=== PATIENT | female | born 1965 | race Caucasian/White ===

== ENCOUNTER → 2016-09-24 10:23 | Outpatient (CLI) | payer BC ==
[2014-11-23 13:29] VITALS: BMI 28.5
[~2016-09-24 10:23] MED LIST: ASPIRIN 81 MG E81 MG PO; BABY ASPIRIN81 MG PO; CITRACAL + D E1 EACH PO; EFFIENT10 MG PO; ELIQUIS2.5 MG PO; FLEXERIL10 MG PO; FLOVENT DISKU100 MCG INH; FOLIC ACID1 MG PO; GABAPENTIN100 MG PO; IMURAN50 MG PO; LEVAQUIN750 MG PO; MAXALT10 MG PO; NITROSTAT0.4 MG SL; NORCO 5/325 TAB1 TA1 PO; PERCOCET 10/3251 TA1 PO; PLAVIX75 MG PO; PRAVACHOL80 MG PO; VENTOLIN HFA18 GM INH; VITAMIN B-1000 MCG/M SQ; VITAMIN D2000 UNIT PO; VITAMIN D31000 UNI2 PO; VITAMIN D31000 UNIT PO; ZANAFLEX4 MG PO; ZESTRIL10 MG PO
== END | disposition home or self-care (01) ==
LOC: D.RAD 10:23 → D.CT 11:30
DX: R10.9 Unspecified abdominal pain (principal)

== ENCOUNTER → 2016-10-11 17:00 | Outpatient (CLI) | payer BC ==
[2014-11-23 13:29] VITALS: BMI 28.5
== END | disposition home or self-care (01) ==
LOC: D.MAMMO 11:00
DX: Z12.31 Encounter for screening mammogram for malignant neoplasm of breast (principal)

== ENCOUNTER → 2017-02-06 07:30 | Outpatient (CLI) | payer BC ==
[2014-11-23 13:29] VITALS: BMI 28.5
== END ==
LOC: D.MRI 07:30
DX: R42 Dizziness and giddiness (principal)

== ENCOUNTER → 2017-07-25 09:59 | Outpatient (CLI) | payer BC ==
[2014-11-23 13:29] VITALS: BMI 28.5
== END | disposition home or self-care (01) ==
LOC: D.US 09:59
DX: R60.0 Localized edema (principal)

== ENCOUNTER → 2017-10-02 07:16 | Outpatient (CLI) | payer BC ==
[2014-11-23 13:29] VITALS: BMI 28.5
[~2017-10-02 07:16] MED LIST changes: +ANORO ELLIPTA1 EACH INH; +ATIVAN0.5 MG PO; +CARAFATE1 G PO; +CRESTOR10 MG PO; +CYMBALTA30 MG PO; +HYDROCODON-ACE1 EAC9 PO; +PROTONIX40 MG PO
== END | disposition home or self-care (01) ==
LOC: D.US 07:16
DX: R94.5 Abnormal results of liver function studies (principal)

== ENCOUNTER → 2017-10-30 12:15 | Outpatient (CLI) | payer BC ==
[2014-11-23 13:29] VITALS: BMI 28.5
== END | disposition home or self-care (01) ==
LOC: D.CT 12:15
DX: R10.9 Unspecified abdominal pain (principal)

== ENCOUNTER 2017-11-14 17:29 | Observation (INO) | payer BC ==
[~2017-11-14] VITALS: Ht 162.6 cm; Wt 75.0 kg
--- NOTE | ~2017-11-14 | HP ---
PATIENT: JOSUE RAMSEY MEDICAL RECORD: [id number] ACCOUNT: [id number] LOCATION:[facility] : 61 ADMISSION DATE: 11/14/17 HISTORY AND PHYSICAL EXAMINATION HISTORY OF PRESENT ILLNESS: A 52-year-old lady with known history of coronary artery disease, status post intervention, has actually done quite well over the past 4 years since the last intervention. She has been having typical chest tightness, pressure with exertion, last probably 2 weeks and had an episode yesterday with doing laundry, woke up again after a nap with chest tightness. She is admitted for further evaluation. PAST MEDICAL HISTORY: 1. History of hypertension. 2. Hyperlipidemia. 3. Gastroesophageal reflux disease. 4. Rheumatoid arthritis, on remittive agents. MEDICATIONS: Include Imuran 50 mg p.o. t.i.d., Carafate 1 gm a.c. and q.h.s., Protonix 40 q. day, Maxalt 10 mg p.r.n., Ativan 0.5 b.i.d. p.r.n., hydrocodone 10/300 q.6 p.r.n., Neurontin 300 q.h.s., Cymbalta 90 q. day, and lisinopril 10 b.i.d., Effient 10 q. day. ALLERGIES: PLAVIX. SOCIAL HISTORY: She is a nonsmoker. Easily takes care of all ADLs. No set exercise program. REVIEW OF SYSTEMS: The patient reports easy bruising but reports no swollen glands. The patient reports no fever, no night sweats, no significant weight gain, no significant weight loss. No significant exercise tolerance. The patient reports no dry eyes, no irritation, no vision change. Patient reports no difficulty hearing and no ear pain. Patient reports no frequent nose bleeds or nose and sinus problems. Patient reports on arm pain on exertion. No shortness of breath while lying down. No history of heart murmur. Patient reports no cough, no wheezing or coughing up blood. Patient reports no abdominal pain, no vomiting. Normal appetite. No diarrhea and not vomiting blood. No nausea and no constipation. Patient reports no incontinence. No difficulty urinating. No hematuria. No increased frequency. Patient reports no muscle aches. No weakness, no arthralgias, no back pain. No swelling of the extremities. Patient reports no abnormal mole, no jaundice, no rashes. Reports no loss of consciousness. No weakness and no numbness. No seizures, dizziness, or headaches. The patient reports no depression, no sleep disturbance, feeling safe in a relationship and no alcohol abuse. Patient reports on fatigue. Reports no runny nose or sinus pressure. No itching, no hives, and no frequent sneezing. PHYSICAL EXAMINATION: GENERAL: Pleasant female, in no acute distress. VITAL SIGNS: 93/53, pulse 55 and regular. HEENT: Normocephalic, atraumatic. NECK: No bruits are noted. HEART: Regular, II/ systolic ejection murmur. LUNGS: Good air excursion. ABDOMEN: Soft, nontender. HISTORY AND PHYSICAL [id number] JOSUE RAMSEY EXTREMITIES: Pulses are 2+ with no edema. DIAGNOSTIC DATA: ECG shows inferior ST-T changes. IMPRESSION: Acute coronary syndrome. PLAN: Plan for diagnostic angiography, intervention based on above. TRANSINT:[id number] Voice Confirmation ID: [id number] DOCUMENT ID: [id number] FAROOQ NICOLE MD at 1214 CC: [id number] DICTATION DATE: 11/15/17 0847 COMMUNICATION COORDINATOR: 11/15/17 0954 DIS IN 11/15/[address] [address]
--- NOTE | ~2017-11-14 | HEMODYNAMI ---
PATIENT:JOSUE RAMSEY MEDICAL RECORD: [id number] : 61 [facility] [id number] ADMISSION DATE: 11/14/17 Generatedon:11/15/201712:42 Patient name: JOSUE RAMSEY Patient #: [id number] SSN: : 1965 Date of study: 11/15/2017 Page: Of Hemodynamic Procedure Report Patient Data Patient Demographics Procedure consent was obtained First Name: JOSUE Gender: Female Last Name: BRAULIO : 1965 [facility] Initial: J Age: 52 year(s) Patient #: [id number] Race: Unknown Additional ID: [id number] Contact details Address: [place] [address] State: [place] City: [place] Zip code: [address] Admission Admission Data Admission Date: 11/14/2017 Admission Time: 19:28 Room #: D.2114 Lab Results Lab Result Date: 11/15/2017 Lab Result Time: 0:00 Biochemistry Name Units Result Min Max BUN mg/dl 19 --(----)*- 7 18 Creatinine mg/dl 0.9 --(-*--)-- 0.6 1.3 CBC Name Units Result Min Max Hemoglobin g/dl 11 *-(----)-- 13.5 17.5 Procedure Procedure Types Cath Procedure Diagnostic Procedure LHC LHC w/Coronaries Procedure Description Procedure Date Procedure Date: 11/15/2017 Procedure Start Time: 12:33 Procedure End Time: 12:41 Procedure Staff Name Function Kishor Stanton MD Performing Physician Soledad Valencia RT Monitor Joya Mcadams RT Scrub Cristofer Hanson RN Nurse Procedure Data Cath Procedure Fluoroscopy Diagnostic fluoroscopy Total fluoroscopy Time: 0.7 time: 0.7 min min Diagnostic fluoroscopy Total fluoroscopy dose: 206 dose: 206 mGy mGy Contrast Material Contrast Material Type Amount (ml) Isovue 300 40 Entry Location Entry Primary Successful Side Size Upsize Upsize Entry Closure Succes sful Closure Location (Fr) 1 (Fr) 2 (Fr) Remarks Device Remarks Femoral Right 5 Fr Exoseal artery Estimated blood loss: 5 ml Diagnostic catheters Device Type Used For End Catheter Placement MULTIPACK Pigtail 5 Fr Multi-vessel catheter Angiography MULTIPACK JL 4.0 5Fr Left Coronary catheter Angiography MULTIPACK 3DRC 5Fr Right Coronary catheter Angiography Procedure Complications No complications Procedure Medications Medication Administration Route Dosage Oxygen etCO2 Nasal cannula 2 l/min Heparin Flush Bag added to field 2 bags (1000units/500ml NS) 0.9% NaCl I.V. 100 ml/hr Fentanyl I.V. 50 mcg Versed I.V. 1 mg Effient P.O. 10 mg Fentanyl I.V. 50 mcg Versed I.V. 1 mg Hemodynamics Rest HGB: 11 (g/dl) Heart Rate: 72 (bpm) Pressure Samples Time Site Value (mmHg) Purpose Heart Use Rate(bpm) 12:34 LV 158/15,16 Snapshot 66 12:35 AO 110/71(90) Pullback 73 Gradients Valve Time Site Site 2 Mean SEP/DFP Peak To Heart Use 1 (mmHg) (sec/min) Peak Rate (mmHg) (bpm) Aortic 12:35 LV AO 22 24 73 110/71(90) Calculations Valve P-P Mean Valve Index Valve Source Name Gradient Area Flow (cm2) Aortic 22 22 Snapshots Pre Cath Intra NCS Post Cath Vital Signs Time Heart Resp SPO2 etCO2 NIBP (mmHg) Rhythm Pain Sedation Rate (ipm) (%) (mmHg) Status Level (bpm) 12:22:55 77 16 96 0 168/93(125) NSR 0 (11) 10(A) , No pain 12:27:15 68 18 94 45.8 164/85(134) NSR 0 (11) 10(A) , No pain 12:31:35 68 17 93 44.3 165/88(133) NSR 0 (11) 9(A) , No pain 12:35:49 71 16 88 42.8 140/85(120) NSR 0 (11) 9(A) , No pain 12:40:52 76 16 96 49.6 167/95(132) NSR 0 (11) 9(A) , No pain Medications Time Medication Route Dose Verified Delivered Reason Notes E ffectiveness by by 12:23:46 Oxygen etCO2 2 Kishor Cleveland Per Nasal l/min [facility] Chan Hanson RN physician cannula 12:23:54 Heparin Flush added 2 Kishor Cristofer used for Bag to bags [facility] Chan Hanson RN procedure (1000units/500ml field NS) 12:24:03 0.9% NaCl I.V. 100 Kishor Cristofer Per ml/hr [facility] Chan Hanson RN physician 12:30:38 Fentanyl I.V. 50 Kishor Cristofer for sedation mcg [facility] Chan Hanson RN, MD 12:30:44 Versed I.V. 1 mg Kishor Cristofer for sedation [facility] Chan Hanson RN, MD 12:30:58 Effient P.O. 10 mg Kishor Cristofer for [facility] Chan Hanson RN antiplatelet MD therapy 12:34:10 Fentanyl I.V. 50 Kishor Cristofer for sedation [facility] Hanson RN, MD 12:34:14 Versed I.V. 1 mg Kishor Cristofer for sedation [facility] Chan Hanson RN, MD Procedure Log Time Note 12:00:09 Joya TRUONG(R) sent for patient. Start room use. 12:08:45 Diagnostic Cath status Elective 12:09:10 Time tracking: Regular hours (M-F 7:00 - 5:00) 12:09:14 Plan of Care:Hemodynamics will remain stable., Cardiac rhythm will remain stable., Comfort level will be maintained., Respiratory function will remain adequate., Patient/ family verbilizes understanding of procedure., Procedure tolerated without complication., Recovers from procedure without complications.. 12:15:08 Patient received from Med II to [facility] 2 Alert and oriented. Tansferred to table in Supine position. 12:15:10 Warm blankets applied, and laith hugger turned on for patient comfort. 12:15:10 Correct patient and procedure confirmed by team. 12:15:12 Signed procedure consent form obtained from patient. 12:15:13 ECG and BP/O2 sat monitors applied to patient. 12:21:47 Vital chart was started 12:21:48 Baseline sample Acquired. 12:21:51 Rhythm: sinus rhythm 12:21:53 Full Disclosure recording started 12:21:57 H&P Date Dictated: 11/15/2017 Within 30 days and on chart., H&P Addendum completed by physician on day of procedure. (MUST COMPLETE FOR ALL OUTPATIENTS). 12:21:59 Pre-procedure instructions explained to patient. 12:21:59 Pre-op teaching completed and patient verbalized understanding. 12:22:00 Family in waiting room. 12:22:02 Patient NPO since Midnight. 12:22:06 Is the patient allergic to Iodine/contrast media? No. 12:22:07 Was the patient premedicated? No 12:22:08 Is patient on blood thinner?Yes 12:22:11 ACC The patient was administered the following blood thiners within the last 24 hours: ACCEffient 12:22:13 Patient diabetic? No. 12:22:15 Previous problem with sedation/anesthesia? No ? 12:22:18 Snore? Yes 12:22:20 Sleep apnea? No 12:22:21 Deviated septum? No 12::22 Opens mouth fully? Yes 12:22:23 Sticks out tongue? Yes 12:22:27 Airway obstruction? Yes copd 12:22:35 Dentures? Yes uppers in tight 12:22:39 Pre procedure: right dorsailis pedis pulse 1+ Palpable, but thready & weak; easily obliterated 12::42 Pre procedure: left dorsailis pedis pulse 1+ Palpable, but thready & weak; easily obliterated 12:22:44 Patient pain scale 0/10 ?. 12:22:55 IV patent on arrival in left forearm with 0.9% NaCl at [facility]. 12:22:57 Lab results completed and on chart. 12:23:02 Right groin area was prepped with chlora-prep and draped in sterile fashion 12:23:03 Alarms reviewed by R. N. 12:23:04 Sharps counted by scrub and verified by R.N. 12:23:46 Oxygen 2 l/min etCO2 Nasal cannula was administered by Cristofer Hanson RN; Per physician; 12:23:54 Heparin Flush Bag (1000units/500ml NS) 2 bags added to field was administered by Cristofer Hanson RN; used for procedure; 12:24:03 0.9% NaCl 100 ml/hr I.V. was administered by Cristofer Hanson RN; Per physician; 12:26:00 Lab Result : BUN 19 mg/dl 12:26:00 Lab Result : Hemoglobin 11 g/dl 12:26:00 Lab Result : Creatinine 0.9 mg/dl 12:30:17 Physician arrived 12::17 --------ALL STOP TIME OUT------ 12:30:18 Final Timeout: patient, procedure, and site verified with staff and physician. All members of the team are in agreement. 12:30:21 Right groin site verified by team. 12:30:24 Physical assessment completed. ASA score P 2 - A patient with mild systemic disease as per Kishor Stanton MD. 12:30:27 Sedation plan: IV Moderate Sedation Medication:Versed, Fentanyl 12:30:38 Fentanyl 50 mcg I.V. was administered by Cristofer Hanson RN; for sedation; 12:30:44 Versed 1 mg I.V. was administered by Cristofer Hanson RN; for sedation; 12:30:58 Effient 10 mg P.O. was administered by Cristofer Hanson RN; for antiplatelet therapy; 12:31:11 Use device set Femoral Dx 12:31:12 ACIST Syringe (67565) opened to sterile field. 12:31:12 Bag Decanter (2002S) opened to sterile field. 12:31:12 Medline Cath Pack ([id number]) opened to sterile field. 12:31:13 DIAGNOSTIC WIRE .035 260cm J wire (889045) opened to sterile field. 12:31:14 ACIST Hand Control (81117) opened to sterile field. 12:31:15 ACIST Manifold (30492) opened to sterile field. 12:31:15 DIAGNOSTIC Multipack 5Fr catheter set (GL0562) opened to sterile field. 12:31:15 Tegaderm 4 x 4 (1626W) opened to sterile field. 12:31:16 SHEATH Prelude 5Fr 0.035 (RCN-8O-69-035) opened to sterile field. 12:31:58 Procedure started. 12:32:06 Zero performed for pressure channel P1 12:32:17 Zero performed for pressure channel P1 12:32:26 Zero performed for pressure channel P1 12:33:22 Local anesthetic to right femoral artery with Lidocaine 2% by Kishor Stanton MD.INITIAL ACCESS ONLY 12:33:34 A 5 Fr sheath was inserted into the Right Femoral artery 12:34:10 Fentanyl 50 mcg I.V. was administered by Cristofer Hanson RN; for sedation; 12:34:14 Versed 1 mg I.V. was administered by Cristofer Hanson RN; for sedation; 12:34:35 A MULTIPACK Pigtail 5 Fr catheter was advanced over the wire and used for Multi-vessel Angiography. 12:34:44 LV hemodynamics recorded. 12:34:45 LV gram done using CERRATO 12:34:48 Injector settings: Ml/sec: 5, Volume: 15, 12:35:00 EF : 40 % 12:35:04 Catheter removed. 12:35:08 A MULTIPACK JL 4.0 5Fr catheter was advanced over the wire and used for Left Coronary Angiography. 12:36:21 LCA angiography performed. 12:36:24 Injector settings: Ml/sec: 3, Volume: 6, 12:36:51 Catheter removed. 12:37:08 A MULTIPACK 3DRC 5Fr catheter was advanced over the wire and used for Right Coronary Angiography. 12:37:39 RCA angiography performed. 12:37:44 Injector settings: Ml/sec: 3, Volume: 6, 12:37:57 Catheter removed. 12:37:59 EXOSEAL 5Fr (EX500) opened to sterile field. 12:39:22 Sheath removed intact; hemostasis achieved with Exoseal to the Right Femoral artery. 12:39:24 Procedure ended.(Physican Out) 12:40:00 Fluoroscopy time 00.70 minutes. 12:40:04 Fluoroscopy dose: 206 mGy 12:40:04 Flurop Dose total: 206 12:40:09 Contrast amount:Isovue 300 40ml. 12:40:10 Sharps counted by scrub and verified by R.N. 12:40:12 Insertion/operative site no bleeding no hematoma. 12:40:15 Post-op/insertion site Right Femoral artery dressed using a 4 x 4 and Tegaderm. 12:40:17 Post right femoral artery:stable 12:40:19 Post Procedure Pulses reassessed and unchanged 12:40:21 Post procedure rhythm: unchanged. 12:40:24 Estimated blood loss: 5 ml 12:40:25 Post procedure instruction explained to patient.Patient verbalizes understanding. 12:40:26 Patient needs reinforcement of post procedure teaching. 12:40:37 Procedure and supply charges have been captured, reviewed, submitted and are correct. 12:40:41 Procedure Complication : No complications 12:40:43 Vital chart was stopped 12:40:44 See physician's report for complete and final results. 12:41:42 Report given to Pre/Post Procedure Room. 12:41:45 Patient transfered to Pre/Post Procedure Room with Stretcher. 12:41:49 Procedure ended. 12:41:49 Full Disclosure recording stopped 12:41:53 End room use (Document Last) Device Usage Item Name Manufacture Quantity Catalog Number Hospital Part Current M inimal Lot# / Charge Number Stock Stock Serial# Code ACIST Syringe Acist 1 [id number] 444160 499342 031396 2 0 (72135) [employer] Bag Decanter Microtek 1 2001S 411381 46844 440510 5 (2001S) Medical Inc. Medline Cath Cardinal 1 [id number] 420514 40310 034099 5 Pack Health ([id number]) DIAGNOSTIC WIRE St Jacob 1 381426 800250 375473 254484 3 0 .035 260cm J wire (925707) ACIST Hand Acist 1 66839 923009 249038 568306 5 Control (88539) [employer] Inc ACIST Manifold Acist 1 61108 432361 730842 729940 5 (64656) [employer] Inc DIAGNOSTIC Cardinal 1 [id number] 439281 13362 337205 3 0 Multipack 5Fr Health catheter set (OV9025) Tegaderm 4 x 4 3M 1 1626W 591986 691188 095068 5 (1626W) SHEATH Prelude Merit 1 XXL-2C-59-035 885513 251038 599149 5 5Fr 0.035 Medical (EAT-7U-16-035) MULTIPACK Cardinal 1 920411 5 Pigtail 5 Fr Health catheter MULTIPACK JL Cardinal 1 [id number] 5 4.0 5Fr Health catheter MULTIPACK 3DRC Cardinal 1 906939 5 5Fr catheter Health EXOSEAL 5Fr Cardinal 1 EX500 048312 195024 050447 1 0 (EX500) Health Signature Audit [place] Stage Time Signature Unsigned Intra-Procedure 11/15/2017 Soledad Valecnia 12:42:53 PM RT(R) Signatures Monitor : Soledad Valencia RT Signature : Date : Time : [facility] [address] [place] [address]
--- NOTE | ~2017-11-14 | PRO ---
PATIENT:JOSUE RAMSEY MEDICAL RECORD: [id number] : 61 LOCATION:[facility] ADMISSION DATE: 11/14/17 PROCEDURE PERFORMED BY: FAROOQ NICOLE MD DATE OF CONSULTATION: 11/15/2017 PROCEDURE: Left heart catheterization, selective coronary angiography, right femoral artery approach. CATHETERS: A 5-Luxembourgish sheath, 5/4 left and right Handy, 5/4 pig. The procedure was well tolerated and the patient returned to the mckenzie. Sheath was removed. ExoSeal device was placed. FINDINGS: Left ventriculography in 30-degree CERRATO view shows mild global hypokinesis. Overall LV function is mildly reduced. Estimated EF 45% to 50%. CORONARY ANATOMY: 1. Left main: The left main is free of disease. 2. LAD: The area of previous stenting is widely patent. 3. Circumflex: The circumflex is free of disease. 4. Right coronary artery: The previous stenting is widely patent. IMPRESSION: Widely patent stents. LV function in the lower limits of normal to mildly reduced. EDITED FOR REPORT TYPE, 12/05/17, MICHELLE TRANSINT:[id number] Voice Confirmation ID: [id number] DOCUMENT ID: [id number] FAROOQ NICOLE MD at 0834 CC: [id number] DICTATION DATE: 11/15/17 1244 FLORAL ARTIST: 11/15/17 1340 DIS IN 11/15/17 [place] [id number] [place] [id number]
[~2017-11-14 17:29] MED LIST changes: -ANORO ELLIPTA1 EACH INH; -ATIVAN0.5 MG PO; -CARAFATE1 G PO; -CRESTOR10 MG PO; -CYMBALTA30 MG PO; -HYDROCODON-ACE1 EAC9 PO; -PROTONIX40 MG PO
[2017-11-14 18:04] LABS: BASOPHILS 0.2 % (0-2); HEMATOCRIT 34.2 % (36.0-48.0); IMMATURE GRANULOCYTES 0.4 % (0-5); LYMPHOCYTES 20.8 % (15-50); MCH 29.3 pg (26.0-34.0); MCHC 32.2 g/dL (31.0-37.0); MCV 91.2 fL (80.0-100.0); MEAN PLATELET VOLUME 9.1 fL (7.4-10.4); NEUTROPHILS 69.6 % (40-80); RBC 3.75 10x6/uL (4.00-5.40); RDW 12.7 % (11.5-14.5); WBC 5.3 10x3/uL (4.8-10.8)
[2017-11-14 18:05] LABS: PLATELET COUNT 223 10x3/uL (130-400)
[2017-11-14 18:13] LABS: APTT 34.3 SECONDS (22.8-39.4); INR 1.06 (0.85-1.17); PROTIME 13.4 SECONDS (11.6-15.0)
[2017-11-14 18:15] LABS: D-DIMER-QUANTITATIVE 0.81 ug/mLFEU (0.20-0.54)
[2017-11-14 18:18] LABS: ALBUMIN 3.5 g/dL (3.4-5.0); ALKALINE PHOSPHATASE 61 U/L (46-116); ALT (SGPT) 20 U/L (10-68); BILIRUBIN - TOTAL 1.07 mg/dL (0.2-1.3); CALC OSMOLALITY 285 mosm/kg (275-300); CALCIUM 9.6 mg/dL (8.5-10.1); CARBON DIOXIDE 26.2 mmol/L (21.0-32.0); CHLORIDE - SERUM 105 mmol/L (98-107); CREATININE - SERUM 0.9 mg/dL (0.6-1.3); GLUCOSE 157 mg/dL (74-106); SODIUM 141 mmol/L (136-145); UREA NITROGEN 19 mg/dL (7-18); eGFR NON AFRICAN AMERICAN 69 mL/min (90-120)
[2017-11-14 18:29] LABS: CKMB 0.9 U/L (0.0-3.6); CREATINE KINASE 156 UL (21-215); PRO BNP 561 pg/mL (0-125)
[2017-11-14 18:33] LABS: TROPONIN-I < 0.017 ng/mL (0.000-0.060)
[2017-11-14] MEDS ORDERED: ATIVAN0.5 MG PO (22:40)
[2017-11-14] MEDS ORDERED: CRESTOR10 MG PO (22:40)
[2017-11-14] MEDS ORDERED: CARAFATE1 G PO (22:41)
[2017-11-14] MEDS ORDERED: CYMBALTA30 MG PO (22:41)
[2017-11-14] MEDS ORDERED: PROTONIX40 MG PO (22:42)
[2017-11-14] MEDS ORDERED: HYDROCODON-ACE1 EAC9 PO (22:42)
[2017-11-14] MEDS ORDERED: ANORO ELLIPTA1 EACH INH (22:43)
[2017-11-14 23:40] VITALS: BP 128/60; Ht 162.6 cm; Wt 75.0 kg
[2017-11-15 01:24] LABS: CKMB 0.8 U/L (0.0-3.6); CREATINE KINASE 132 UL (21-215); TROPONIN-I < 0.017 ng/mL (0.000-0.060)
[2017-11-15 03:58] LABS: CKMB 0.6 U/L (0.0-3.6); CREATINE KINASE 118 UL (21-215)
[2017-11-15 04:01] LABS: TROPONIN-I < 0.017 ng/mL (0.000-0.060)
[2017-11-15 05:40] VITALS: BP 98/48
[2017-11-15 08:33] VITALS: BP 93/53
[2017-11-15 09:10] LABS: BASOPHILS 0.5 % (0-2); EOSINOPHILS 2.9 % (0-7); HEMATOCRIT 30.9 % (36.0-48.0); HEMOGLOBIN 9.6 g/dL (12-16); IMMATURE GRANULOCYTES 0.5 % (0-5); LYMPHOCYTES 28.6 % (15-50); MCH 28.9 pg (26.0-34.0); MCHC 31.1 g/dL (31.0-37.0); MCV 93.1 fL (80.0-100.0); MEAN PLATELET VOLUME 9.5 fL (7.4-10.4); MONOCYTES 5.6 % (2-11); NEUTROPHILS 61.9 % (40-80); PLATELET COUNT 232 10x3/uL (130-400); RBC 3.32 10x6/uL (4.00-5.40); RDW 12.8 % (11.5-14.5); WBC 4.4 10x3/uL (4.8-10.8)
[2017-11-15 09:12] LABS: CALC OSMOLALITY 291 mosm/kg (275-300); CALCIUM 8.8 mg/dL (8.5-10.1); CARBON DIOXIDE 29.4 mmol/L (21.0-32.0); CHLORIDE - SERUM 109 mmol/L (98-107); CREATININE - SERUM 0.8 mg/dL (0.6-1.3); GLUCOSE 123 mg/dL (74-106); SODIUM 145 mmol/L (136-145); UREA NITROGEN 18 mg/dL (7-18); eGFR NON AFRICAN AMERICAN 79 mL/min (90-120)
[2017-11-15 09:18] LABS: POTASSIUM - SERUM 3.5 mmol/L (3.5-5.1)
[2017-11-15 11:38] LABS: CKMB 0.8 U/L (0.0-3.6); CREATINE KINASE 112 UL (21-215); TROPONIN-I < 0.017 ng/mL (0.000-0.060)
[2017-11-15 11:41] VITALS: BP 123/63
== END 2017-11-15 15:00 | disposition home or self-care (01) ==
LOC: D.ER 17:29 → D.M2 19:28 → OBSVTIME 19:30 → D.CLR 11-15 12:49
PROVIDERS: Emergency Medicine; Family Medicine; Internal Medicine Interventional Cardiology
DX: R07.89 Other chest pain (principal); I25.10 Atherosclerotic heart disease of native coronary artery without angina pectoris; Z95.5 Presence of coronary angioplasty implant and graft; I10 Essential (primary) hypertension; E78.5 Hyperlipidemia, unspecified; K21.9 Gastro-esophageal reflux disease without esophagitis; M06.9 Rheumatoid arthritis, unspecified

== ENCOUNTER 2018-04-08 11:45 | Inpatient (IN) | payer BC ==
[2018-04-03 17:25] LABS: HEMATOCRIT 37.9 % (36.0-48.0); HEMOGLOBIN 12.5 g/dL (12-16); MCH 29.3 pg (26.0-34.0); MEAN PLATELET VOLUME 9.4 fL (7.4-10.4); RBC 4.26 10x6/uL (4.00-5.40); RDW 14.5 % (11.5-14.5); WBC 5.3 10x3/uL (4.8-10.8)
[2018-04-08] VITALS (8 sets, daily range): BP systolic 89–137; BP diastolic 54–87; BMI 27.8
[~2018-04-08] VITALS: Ht 165.1 cm; Wt 74.5 kg
--- NOTE | ~2018-04-08 | OP ---
PATIENT NAME: JOSUE JAMES MEDICAL RECORD: [id number] :61 LOCATION:[facility] ADMISSION DATE:04/08/18 SURGEON: MARCELO NOLEN DO DATE OF OPERATION: 04/08/2018 PROCEDURE PERFORMED: Left total hip arthroplasty. PREOPERATIVE DIAGNOSIS: Avascular necrosis of the left femoral head. POSTOPERATIVE DIAGNOSIS: Avascular necrosis of the left femoral head. SURGEON: Marcelo Nolen DO INDICATIONS: Ms. James is a 53-year-old female who presented to my office last week. She had been seen previously in the office by a prior physician and she had a right total hip done for avascular necrosis approximately 2 years ago. She said that her left hip started hurting her quite a bit in the last few months. The pain may get worse. She is tired of dealing with the pain and knew that she had avascular necrosis. Based on the MRI she had 2 years ago and on x-ray, she had a large what appeared to be a crescent sign cyst on the lateral x-ray of her hip. Knowing this and due to the pain, she did not want to wait for it to collapse or get worse and she asked to have a total hip done. I informed her of the risks and benefits of the procedure including the risk of fracture, bleeding, infection, need for further surgery, also gave her the precautions for anterior hip. She was aware of those risks and consented to the procedure. She is also aware of the leg length discrepancy possibility. DESCRIPTION OF PROCEDURE: The patient was given a block in the preoperative area by anesthesia and taken to the operative suite, laid in the supine position. Given general anesthetic, intubated and sedated, given 1.25 grams of vancomycin intravenously. A timeout was performed. It was agreed as the correct side, site, the patient and procedure. The left hip was then prepped and draped in sterile fashion. Once was prepped and draped and a timeout performed, the incision began just over the tensor fascia sage and based on the ASIS as a landmark diagonally over the tensor fascia sage, a careful dissection was made down to the fascia itself over the tensor fascia sage. This was incised and the muscle belly was taken inferior and then fascia superiorly anterior and posteriorly. The interval between the rectus was then encountered and the rectus was taken medially and the tensor fascia sage was taken laterally and the capsule was encountered as well as the ascending branch of the lateral femoral circumflex, which was tied off and the Aquamantys was used to coagulate it as well and then was cut. There was no bleeding from it. Coagulation was done throughout the procedure with the Aquamantys and the plasma blade. The capsulotomy was then performed. The capsule was tagged at the neck of the femur. Hohmanns were put on either side of it and then the femur cut was made. The head was then removed from the acetabulum. The acetabulum was cleaned. The labrum was removed and the pulvinar was removed from the acetabulum and then reaming began first medializing and then reamed up to a 50. A 50 cup was put into place and seen to be in good position. This was done under fluoroscopy and the cup liner was put in. The femur was then exposed. The neck slightly had a slightly high neck cut and this was recut at that time and then the canal finder was used as well as the kodiie cutter and then began broaching with the 4 up to a 10, 10 fitted OPERATIVE REPORT [id number] JOSUE JAMES. We then trialed neck and head with a -6. This was too short, went to a -3 and this was close but still too short. Then, we put the stem down, the #10 stem with a standard neck trial and this on x-rays, AP pelvis compared to the other hip and it was very close and equal lengths. Once this was obtained, the actual implant was put on and impacted into place. The hip was reduced. Thorough irrigation was done throughout the procedure once the hip was reduced and the capsule was then closed with tag stitch #2 Ethibond and then the tensor fascia sage fascia was closed with #1 Vicryl, first in tqfuwe-lg-zhema and then a running locking stitch. Then, this was irrigated, prior to closure of the tensor fascia sage fascia, vancomycin powder and Surgicel beads were placed into the wound. The tensor fascia sage fascia was irrigated and then closed with 2-0 Vicryl and 4-0 Monocryl and Prineo was placed on the skin. Telfa and tape were then placed on her skin over the incision with a perineal glue. ESTIMATED BLOOD LOSS: Blood loss was approximately 200 mL. COMPLICATIONS: None. TRANSINT:[id number] Voice Confirmation ID: [id number] DOCUMENT ID: [id number] MARCELO NOLEN DO at 0727 CC: [id number] DICTATION DATE: 04/08/181750 SEASONAL SALES ASSOCIATE: 04/08/181948 ADM IN [facility] [address] [id number]
--- NOTE | ~2018-04-08 | EC ---
PATIENT:JOSUE RAMSEY DATE OF SERVICE: 04/08/18 SEX: F MEDICAL RECORD: [id number] DATE OF : 61 LOCATION:[facility] AGE OF PATIENT: 53 ADMISSION DATE: 04/08/18 REFERRING PHYSICIAN: INTERPRETING PHYSICIAN: RADHA OSPINA MD ECHOCARDIOGRAM REPORT ECHO CHARGES 4 ECHO COMPLETE Date: 04/11/18 CLINICAL DIAGNOSIS: CHF HX OF CAD/STENTS/HTN ECHOCARDIOGRAPHIC MEASUREMENTS (adult normal given) AC root (d.<3.7cm) 3.3 cm LV Septum d (<1.2 cm> 1.4 cm Valve Excursion 1.6 cm LV Septum (systole) 2.0 cm Left Atria (s.<4.0cm> 3.7 cm LVPW d(<1.2cm) 1.6 cm RV (d.<2.3cm) 4.2 cm LVPW (sytole) 2.0 cm LV diastole(<5.6CM) 6.5 cm MV E-F(>70mm/sec) cm LV systole 4.4 cm LVOT Diameter 1.7 cm MV exc.(>10mm) 2.0 cm Est.ejection fraction (50-75%) % DOPPLER: LVIT cm/sec A 99.0 cm/sec E 88.0 cm/sec LA cm/sec RVSP 30 mmHg LVOT 146 cm/sec AOP1/2T m/s Asc. Ao 178 cm/sec RVOT 81 cm/sec RA cm/sec PA 127 cm/sec AV Gradient Peak 12.61mmHg AV Mean 7.00 mmHg AV Area 1.6 cm MV Gradient Peak 5.12 mmHg MV Mean 2.52 mmHg MV Area cm COMMENTS: Mortician Investigator: 2 CHANDRAKANT CLAYTON Foxer: 4 Dr. Ospina TAPE# PACS Pericardial Effusion N DATE OF SERVICE: PROCEDURE: Transthoracic echocardiogram. FINDINGS: 1. Left ventricle is difficult to visualize, but the patient's overall ejection fraction appears to be normal. There is evidence of left ventricular hypertrophy and inflow characteristics consistent with diastolic dysfunction. 2. The left atrium appears to be grossly normal. 3. The aortic valve is shown to be thickened, but no evidence of significant ECHOCARDIOGRAM REPORT [id number] JOSUE RAMSEY stenosis or regurgitation. 4. The mitral valve has ppvfh-up-tgge mitral regurgitation. 5. Tricuspid valve has mild tricuspid regurgitation. RVSP is normal. 6. Pericardium is normal. 7. The right ventricle is tspi-uo-kaeqoklvac dilated. The right ventricular free wall appears to be mildly hypokinetic. 8. The right atrium is dilated. CONCLUSIONS: The patient has evidence of mild dilatation in the RV. Preserved left ventricular systolic function. Evidence of hypertensive heart disease. TRANSINT:[id number] Voice Confirmation ID: [id number] DOCUMENT ID: [id number] RADHA OSPINA MD at 1348 CC: [id number] DICTATION DATE: 04/12/18 1030 PRODUCT STEWARD: 04/12/18 1054 DIS IN 04/13/18 [facility] [address] [place] [address]
[~2018-04-08 11:45] MED LIST changes: +ANORO ELLIPTA1 EACH INH; +ATIVAN0.5 MG PO; +BAYER CHEWABLE81 MG PO; +CARAFATE1 G PO; +CRESTOR10 MG PO; +CYMBALTA30 MG PO; +HYDRALAZINE HCL25 MG PO; +HYDROCODON-ACE1 EAC7 PO; +PROTONIX40 MG PO; +THIAMINE IN100 MG/ML IM; +[UNRECOGNIZED DRUG - OTHER]
[2018-04-09 04:25] LABS: HEMATOCRIT 30.2 % (36.0-48.0); HEMOGLOBIN 9.7 g/dL (12-16); MCH 28.7 pg (26.0-34.0); MCHC 32.1 g/dL (31.0-37.0); MCV 89.3 fL (80.0-100.0); MEAN PLATELET VOLUME 9.7 fL (7.4-10.4); RBC 3.38 10x6/uL (4.00-5.40); WBC 7.2 10x3/uL (4.8-10.8)
[2018-04-09 04:51] VITALS: BP 122/78; BMI 27.3
[2018-04-09 05:46] VITALS: BP 103/60
[2018-04-09 06:48] VITALS: Ht 165.1 cm; Wt 74.5 kg
[2018-04-09 07:08] LABS: ALBUMIN 2.8 g/dL (3.4-5.0); ANION GAP 13.5 mmol/L (8-16); BILIRUBIN - TOTAL 1.76 mg/dL (0.2-1.3); CALCIUM 8.3 mg/dL (8.5-10.1); CARBON DIOXIDE 26.4 mmol/L (21.0-32.0); CREATININE - SERUM 1.1 mg/dL (0.6-1.3); POTASSIUM - SERUM 4.9 mmol/L (3.5-5.1); PROTEIN - SERUM 5.9 g/dL (6.4-8.2)
[2018-04-09 08:26] VITALS: BP 113/56
[2018-04-09 13:47] VITALS: BP 123/63
[2018-04-09 16:02] VITALS: BP 137/57
[2018-04-09 22:57] VITALS: BP 121/56
[2018-04-10 04:45] LABS: BASOPHILS 0.2 % (0-2); EOSINOPHILS 0.3 % (0-7); HEMATOCRIT 27.1 % (36.0-48.0); HEMOGLOBIN 8.8 g/dL (12-16); IMMATURE GRANULOCYTES 0.2 % (0-5); LYMPHOCYTES 11.1 % (15-50); MCH 29.5 pg (26.0-34.0); MCHC 32.5 g/dL (31.0-37.0); MCV 90.9 fL (80.0-100.0); MEAN PLATELET VOLUME 9.7 fL (7.4-10.4); MONOCYTES 9.6 % (2-11); NEUTROPHILS 78.6 % (40-80); PLATELET COUNT 220 10x3/uL (130-400); RBC 2.98 10x6/uL (4.00-5.40); RDW 15.7 % (11.5-14.5); WBC 6.7 10x3/uL (4.8-10.8)
[2018-04-10 05:07] LABS: ALBUMIN 2.8 g/dL (3.4-5.0); BILIRUBIN - TOTAL 1.42 mg/dL (0.2-1.3); CALCIUM 8.3 mg/dL (8.5-10.1); CARBON DIOXIDE 30.1 mmol/L (21.0-32.0); MAGNESIUM - SERUM 1.7 mg/dL (1.8-2.4); PHOSPHOROUS 3.4 mg/dL (2.5-4.9); PROTEIN - SERUM 5.9 g/dL (6.4-8.2)
[2018-04-10 05:26] LABS: ANION GAP 9.6 mmol/L (8-16); CREATININE - SERUM 1.6 mg/dL (0.6-1.3); POTASSIUM - SERUM 3.7 mmol/L (3.5-5.1)
[2018-04-10 10:48] VITALS: BP 77/36
[2018-04-10 16:16] LABS: APPEARANCE CLEAR (CLEAR); BILIRUBIN NEGATIVE (NEGATIVE); COLOR YELLOW (YELLOW); GLUCOSE NEGATIVE (NEGATIVE); KETONE NEGATIVE (NEGATIVE); NITRITE NEGATIVE (NEGATIVE); PROTEIN NEGATIVE (NEGATIVE); UROBILINOGEN NORMAL (NORMAL)
[2018-04-10 16:18] LABS: BACTERIA FEW /hpf (NONE SEEN); EPITHELIAL CELLS 0-5 /hpf (0-5); RED CELLS - URINE 0-5 /hpf (0-5); WHITE CELLS - URINE 0-5 /hpf (0-5)
[2018-04-10 20:00] VITALS: BP 137/72
[2018-04-11] VITALS: BP 110/60
[2018-04-11 04:00] VITALS: BP 80/50
[2018-04-11 04:27] LABS: BASOPHILS 0.1 % (0-2); EOSINOPHILS 1.6 % (0-7); HEMATOCRIT 31.9 % (36.0-48.0); HEMOGLOBIN 10.3 g/dL (12-16); IMMATURE GRANULOCYTES 0.3 % (0-5); MCH 28.8 pg (26.0-34.0); MCHC 32.3 g/dL (31.0-37.0); MCV 89.1 fL (80.0-100.0); MEAN PLATELET VOLUME 9.4 fL (7.4-10.4); MONOCYTES 9.9 % (2-11); NEUTROPHILS 75.1 % (40-80); RDW 15.7 % (11.5-14.5); WBC 6.7 10x3/uL (4.8-10.8)
[2018-04-11 04:35] LABS: ALBUMIN 2.5 g/dL (3.4-5.0); ANION GAP 8.3 mmol/L (8-16); BILIRUBIN - TOTAL 2.66 mg/dL (0.2-1.3); CALCIUM 8.5 mg/dL (8.5-10.1); CARBON DIOXIDE 30.7 mmol/L (21.0-32.0); CREATININE - SERUM 1.7 mg/dL (0.6-1.3); MAGNESIUM - SERUM 1.6 mg/dL (1.8-2.4); PHOSPHOROUS 3.3 mg/dL (2.5-4.9); PROTEIN - SERUM 5.8 g/dL (6.4-8.2)
[2018-04-11 04:36] LABS: PLATELET COUNT 162 10x3/uL (130-400); RBC 3.58 10x6/uL (4.00-5.40)
[2018-04-11 08:02] VITALS: BP 72/39
[2018-04-11 10:32] LABS: CKMB 2.4 U/L (0.0-3.6); CREATINE KINASE 752 UL (21-215)
[2018-04-11 10:35] LABS: TROPONIN-I < 0.017 ng/mL (0.000-0.060)
[2018-04-11 15:05] LABS: HEMOGLOBIN 9.9 g/dL (12-16)
[2018-04-11 15:31] LABS: CKMB 5.1 U/L (0.0-3.6)
[2018-04-11 15:40] LABS: CREATINE KINASE 1261 UL (21-215); TROPONIN-I < 0.017 ng/mL (0.000-0.060)
[2018-04-11 20:00] VITALS: BP 143/69
[2018-04-11 22:14] LABS: CKMB 6.4 U/L (0.0-3.6)
[2018-04-11 22:15] LABS: CREATINE KINASE 1815 UL (21-215); TROPONIN-I < 0.017 ng/mL (0.000-0.060)
[2018-04-12] VITALS: BP 125/60
[2018-04-12 04:00] VITALS: BP 87/51
[2018-04-12 05:50] LABS: BASOPHILS 0.2 % (0-2); EOSINOPHILS 3.1 % (0-7); HEMATOCRIT 29.5 % (36.0-48.0); HEMOGLOBIN 9.5 g/dL (12-16); IMMATURE GRANULOCYTES 0.4 % (0-5); LYMPHOCYTES 15.7 % (15-50); MCH 28.3 pg (26.0-34.0); MCHC 32.2 g/dL (31.0-37.0); MCV 87.8 fL (80.0-100.0); MONOCYTES 8.8 % (2-11); NEUTROPHILS 71.8 % (40-80); PLATELET COUNT 179 10x3/uL (130-400); RBC 3.36 10x6/uL (4.00-5.40); RDW 14.9 % (11.5-14.5)
[2018-04-12 05:53] LABS: WBC 4.9 10x3/uL (4.8-10.8)
[2018-04-12 06:16] LABS: CALC OSMOLALITY 279 mosm/kg (275-300); CALCIUM 8.5 mg/dL (8.5-10.1); CARBON DIOXIDE 28.1 mmol/L (21.0-32.0); CHLORIDE - SERUM 105 mmol/L (98-107); CREATININE - SERUM 0.8 mg/dL (0.6-1.3); GLUCOSE 114 mg/dL (74-106); POTASSIUM - SERUM 3.6 mmol/L (3.5-5.1); SODIUM 139 mmol/L (136-145); UREA NITROGEN 14 mg/dL (7-18); eGFR NON AFRICAN AMERICAN 79 mL/min (90-120)
[2018-04-12 09:11] VITALS: BP 118/68
[2018-04-12 15:35] VITALS: BP 148/73
[2018-04-12 19:58] VITALS: BP 174/82
[2018-04-13] VITALS: BP 126/63
[2018-04-13 04:00] VITALS: BP 142/65
[2018-04-13 09:07] VITALS: BP 157/80
[2018-04-13] MEDS ORDERED: MACROBID100 MG PO (14:08)
[2018-04-13] MEDS ORDERED: ELIQUIS2.5 MG PO (14:09)
[2018-04-13] MEDS ORDERED: KEFLEX500 MG PO (14:09)
[2018-04-13] MEDS ORDERED: NORCO 10-325 TA1 TAB PO (14:10)
[2018-04-13 15:26] VITALS: BP 158/77
== END 2018-04-13 16:09 | disposition home or self-care (01) | DRG 470 ==
LOC: D.SDCHOLD 11:45 → D.MS 12:25 → D.SDCHOLD 12:25 → D.MS 17:39
PROVIDERS: Anesthesiology; Family Medicine; Orthopaedic Surgery
PROC: 0SRB0JZ Replacement of Left Hip Joint with Synthetic Substitute, Open Approach (ICD-10-PCS; principal; 2018-04-08 14:45)
DX: M87.9 Osteonecrosis, unspecified (principal); N39.0 Urinary tract infection, site not specified; I95.81 Postprocedural hypotension; I10 Essential (primary) hypertension; I25.10 Atherosclerotic heart disease of native coronary artery without angina pectoris; I73.9 Peripheral vascular disease, unspecified; M06.9 Rheumatoid arthritis, unspecified; D64.9 Anemia, unspecified; E78.5 Hyperlipidemia, unspecified; M79.7 Fibromyalgia; F32.9 Major depressive disorder, single episode, unspecified; F41.9 Anxiety disorder, unspecified; J44.9 Chronic obstructive pulmonary disease, unspecified

== ENCOUNTER → 2019-02-05 08:46 | Outpatient (CLI) | payer BC ==
[2018-04-09 06:48] VITALS: BMI 27.3
[~2019-02-05 08:46] MED LIST changes: +KEFLEX500 MG PO; +MACROBID100 MG PO; +NORCO 10-325 TA1 TAB PO
== END | disposition home or self-care (01) ==
LOC: D.CT 08:46
PROVIDERS: ATTEND Internal Medicine Cardiovascular Disease
DX: I70.213 Atherosclerosis of native arteries of extremities with intermittent claudication, bilateral legs (principal)